=== PATIENT | male | born 1955 | race Caucasian/White ===

== ENCOUNTER 2024-04-28 09:35 | Outpatient (CLI) | payer BC | END 2024-04-28 09:36 | disposition home or self-care (01) | LOC: RAD 09:35 | PROVIDERS: ATTEND Internal Medicine | DX: R06.00 Dyspnea, unspecified (principal); J43.9 Emphysema, unspecified | CPT/HCPCS: 71046 ==

== ENCOUNTER 2025-01-26 09:31 | Outpatient (CLI) | payer MEDICARE | END 2025-01-26 09:32 | disposition home or self-care (01) | LOC: CT 09:31 | PROVIDERS: ATTEND Internal Medicine | DX: Z12.2 Encounter for screening for malignant neoplasm of respiratory organs (principal); Z87.891 Personal history of nicotine dependence; J44.9 Chronic obstructive pulmonary disease, unspecified; R91.8 Other nonspecific abnormal finding of lung field | CPT/HCPCS: 71271 ==